=== PATIENT | male | born 1955 | race Caucasian/White ===

== ENCOUNTER 2019-02-20 08:26 | Emergency (ER) | payer BC ==
[~2019-02-20] VITALS: Ht 180.3 cm; Wt 104.0 kg
[2019-02-20] MEDS ORDERED: CLONAZEPAM1 MG PO (08:49)
[2019-02-20] MEDS ORDERED: LISINOP/HCTZ1 TA2 PO (08:50)
[2019-02-20 09:46] LABS: IMMATURE GRANULOCYTES 0.5 % (0.0-5.0); MEAN CELL VOLUME 56.8 fL CALC (80.0-100.0); MEAN CORPUSCULAR HGB 14.1 pG CALC (26.0-32.0); MEAN CORPUSCULAR HGB CONC 24.8 g/L CALC (32.0-36.0); NEUT# 4.18 thou/uL (1.82-7.42); RED BLOOD COUNT 3.7 mill/uL (4.70-6.10); RED CELL DISTRI WIDTH 22.7 % (11.5-15.5)
[2019-02-20 10:01] LABS: ALBUMIN 3.4 g/dL (3.2-5.0); ALKALINE PHOSPHATASE 103 u/l (38-126); ANION GAP 13 (6-22 (CALC)); BILIRUBIN, TOTAL 0.8 mg/dL (0.0-1.4); BUN 16 mg/dL (8-23); BUN/CREATININE RATIO 18 (12-20 (CALC)); CARBON DIOXIDE 27 mmol/l (22-30); CHLORIDE 98 mmol/l (95-108); CREATININE 0.9 mg/dL (0.7-1.3); GFR > 60 ML/MIN (>=60 (CALC)); GFR FOR AFR.AMER. > 60 ML/MIN (>=60 (CALC)); POTASSIUM 3.9 mmol/l (3.5-5.1); SGOT/AST 67 u/l (19-48); SODIUM 134 mmol/l (137-146)
[2019-02-20 10:07] LABS: HEMOGLOBIN 5.2 g/dl (14.0-18.0)
[2019-02-20 10:49] LABS: INTERNATIONAL NORMALIZED RATIO 1.2 RATIO (0.7-1.3); PROTHROMBIN TIME 12.3 SECONDS (9.0-12.5)
[2019-02-20 11:26] LABS: HEMATOCRIT 21.3 % (39.0-50.0)
[2019-02-20 11:30] LABS: HEMOGLOBIN 5.3 g/dl (14.0-18.0)
[2019-02-20 11:48] VITALS: BP 107/59
[2019-02-20 12:00] VITALS: BP 113/56
[2019-02-20 12:20] VITALS: BP 122/59
[2019-02-20 12:40] VITALS: BP 122/59
== END 2019-02-20 12:40 | disposition short-term general hospital (02) | DRG 812 ==
LOC: ED 08:26
PROVIDERS: Emergency Medicine
PROC: 30233N1 Transfusion of Nonautologous Red Blood Cells into Peripheral Vein, Percutaneous Approach (ICD-10-PCS; principal; 2019-02-20)
DX: D64.9 Anemia, unspecified (principal); J90 Pleural effusion, not elsewhere classified; R79.89 Other specified abnormal findings of blood chemistry; R94.31 Abnormal electrocardiogram [ECG] [EKG]; R60.0 Localized edema; L53.8 Other specified erythematous conditions; I10 Essential (primary) hypertension; Z79.899 Other long term (current) drug therapy; F41.9 Anxiety disorder, unspecified; S89.92XA Unspecified injury of left lower leg, initial encounter; R53.1 Weakness
CPT/HCPCS: P9016

== ENCOUNTER 2019-09-06 06:51 | Emergency (ER) | payer BC ==
[~2019-09-06 06:51] MED LIST: CLONAZEPAM1 MG PO; LISINOP/HCTZ1 TA2 PO
[2019-09-06 07:46] LABS: IMMATURE GRANULOCYTES 0.6 % (0.0-5.0); MEAN CORPUSCULAR HGB 27.4 pG CALC (26.0-32.0); MEAN CORPUSCULAR HGB CONC 31.5 g/dL CAL (32.0-36.0); NEUT# 6.49 thou/uL (1.82-7.42); RED BLOOD COUNT 4.24 mill/uL (4.70-6.10)
[2019-09-06 07:47] LABS: HEMATOCRIT 36.8 % (39.0-50.0); MEAN CELL VOLUME 86.8 fL CALC (80.0-100.0)
[2019-09-06 07:48] LABS: HEMOGLOBIN 11.6 g/dl (14.0-18.0)
[2019-09-06 08:07] LABS: ALBUMIN 4.2 g/dL (3.2-5.0); ALKALINE PHOSPHATASE 106 u/l (38-126); ANION GAP 13 (6-22 (CALC)); BILIRUBIN, TOTAL 0.7 mg/dL (0.0-1.4); BUN 21 mg/dL (8-23); BUN/CREATININE RATIO 22 (12-20 (CALC)); CARBON DIOXIDE 26 mmol/l (22-30); CHLORIDE 98 mmol/l (95-108); CREATININE 0.9 mg/dL (0.7-1.3); ETHYL ALCOHOL 0 mg/dl (0-30); GFR > 60 ML/MIN (>=60 (CALC)); GFR FOR AFR.AMER. > 60 ML/MIN (>=60 (CALC)); LIPASE 147 u/l (23-300); POTASSIUM 4.4 mmol/l (3.5-5.1); SGOT/AST 31 u/l (19-48); SODIUM 132 mmol/l (137-146); TOTAL PROTEIN 8.1 g/dL (6.3-8.2)
[2019-09-06 08:08] VITALS: BP 125/65
[2019-09-07] MEDS ORDERED: LASIX40 MG PO (10:13)
[2019-09-07] MEDS ORDERED: METOPROLOL SUCC50 MG PO (10:13)
[2019-09-07] MEDS ORDERED: ATORVASTATIN CA80 MG PO (10:15)
[2019-09-07] MEDS ORDERED: SPIRONOLACT25 MG PO (10:15)
[2019-09-07] MEDS ORDERED: PANTOPRAZOLE SO40 M1 PO (10:16)
[2019-09-07] MEDS ORDERED: BRILINTA90 MG PO (10:16)
[2019-09-07] MEDS ORDERED: ENDOCET1 TA1 PO (10:18)
[2019-09-07] MEDS ORDERED: CLONAZEPAM1 MG PO (10:20)
--- NOTE | 2019-09-08 11:59 | NUR ---
Pt. was seen on 06/09/[address] received the order. He was alert and oriented. He was aware of where he was, day, time, and able to carry on a brief conversation. Nsg reported he was C[place] Acted and admitted for Hallucinations, Meth Amphetamines, Amphetamines, and Cocaine use. ST evaluation not necessary at this time.
== END 2019-09-06 08:08 | disposition left against medical advice (07) | DRG 125 ==
LOC: ED 06:51
PROVIDERS: Family Medicine
DX: R44.1 Visual hallucinations (principal); I10 Essential (primary) hypertension; I25.2 Old myocardial infarction; F17.210 Nicotine dependence, cigarettes, uncomplicated; Z95.5 Presence of coronary angioplasty implant and graft; Z91.19 Patient's noncompliance with other medical treatment and regimen

== ENCOUNTER 2019-09-06 13:24 | Inpatient (IN) | payer BC ==
--- NOTE | 2019-09-06 13:24 | NUR ---
PT AMB TO ROOM WITH DRESSINGS TO BILATERAL FEET
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
--- NOTE | 2019-09-06 14:45 | NUR ---
PATIENT RESTING AWAITNG LAB AND RADIOLOGY RESULTS. PATIENT DENIES ANY SUICIDAL IDEATIONS AT THIS TIME. PATIENT DENIES ANY PAIN AT THIS TIME
[2019-09-06 15:00] LABS: HEMATOCRIT 39.1 % (39.0-50.0); HEMOGLOBIN 12.3 g/dl (14.0-18.0); IMMATURE GRANULOCYTES 0.3 % (0.0-5.0); MEAN CELL VOLUME 86.9 fL CALC (80.0-100.0); MEAN CORPUSCULAR HGB 27.3 pG CALC (26.0-32.0); MEAN CORPUSCULAR HGB CONC 31.5 g/dL CAL (32.0-36.0); NEUT# 5.64 thou/uL (1.82-7.42); RED BLOOD COUNT 4.5 mill/uL (4.70-6.10); RED CELL DISTRI WIDTH 16.1 % (11.5-15.5)
[2019-09-06 15:19] LABS: ALBUMIN 4.4 g/dL (3.2-5.0); ALKALINE PHOSPHATASE 118 u/l (38-126); ANION GAP 14 (6-22 (CALC)); BILIRUBIN, TOTAL 0.7 mg/dL (0.0-1.4); BUN 19 mg/dL (8-23); BUN/CREATININE RATIO 18 (12-20 (CALC)); CARBON DIOXIDE 24 mmol/l (22-30); CHLORIDE 99 mmol/l (95-108); ETHYL ALCOHOL 0 mg/dl (0-30); GFR > 60 ML/MIN (>=60 (CALC)); GFR FOR AFR.AMER. > 60 ML/MIN (>=60 (CALC)); LIPASE 122 u/l (23-300); POTASSIUM 4.1 mmol/l (3.5-5.1); SGOT/AST 31 u/l (19-48); SODIUM 134 mmol/l (137-146); TOTAL PROTEIN 8.9 g/dL (6.3-8.2)
--- NOTE | 2019-09-06 15:45 | NUR ---
PATIENT RESTING WITH EYES CLOSED AWAITING LAB RESULTS. PATIENT DENIES ANY SUICIDAL IDEATIONS AT THIS TIME. PATIENT STILL STATES THERE ARE SNAKES ALL OVER. NOTIFIED
[2019-09-06 15:49] LABS: TSH, 3RD GENERATION 2.04 uIU/mL (0.47 - 4.68)
--- NOTE | 2019-09-06 16:45 | NUR ---
PATIENT RESTING AWAITING LAB RESULTS. PATIENT STATES UNABLE TO GIVE URINE SPECIMEN AT THIS TIME. PATIENT DENIES ANY PAIN AT THIS TIME
--- NOTE | 2019-09-06 17:00 | NUR ---
CALLED TO GIVE REPORT AND NURSE UNAVAIBLE FOR REPORT
--- NOTE | 2019-09-06 17:12 | NUR ---
PATIENT STATES TAKES NUMEROUS MEDICATIONS BUT CANT REMEMBER EXACT MEDS OR DOSAGES. MD NOTIFIED AND PHARMACY CONSULT PLACED
--- NOTE | 2019-09-06 17:26 | NUR ---
REPORT GIVEN TO ICU
--- NOTE | 2019-09-06 17:30 | NUR ---
PATIENT TRANSPORTED TO ICU
[2019-09-06 17:37] VITALS: BP 161/90
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
[2019-09-06 18:00] VITALS: BP 149/86
[2019-09-06 18:15] VITALS: BP 125/75
[2019-09-06 18:20] LABS: URINE BILIRUBIN - DIPSTICK NEGATIVE (NEGATIVE); URINE BLOOD DIPSTICK NEGATIVE (NEGATIVE); URINE COLOR YELLOW; URINE GLUCOSE - DIPSTICK NEGATIVE (NEGATIVE); URINE KETONE 15 mg/dL (NEGATIVE); URINE LEUK ESTERASE NEGATIVE (NEGATIVE); URINE NITRITE - DIPSTICK NEGATIVE (Negative); URINE PROTEIN - DIPSTICK NEGATIVE (NEG-TRACE); URINE UROBILINOGEN - DIPSTICK 0.2 E.U./dL (0.2)
[2019-09-06 18:24] LABS: BARBITURATES NEGATIVE (NEGATIVE); COCAINE POSITIVE (NEGATIVE); METHADONE NEGATIVE (NEGATIVE); TETRAHYDROCANNABIONOL NEGATIVE (NEGATIVE); TRICYLIC ANTIDEPRESSANTS NEGATIVE (NEGATIVE)
[2019-09-06 18:25] LABS: OXCYCODONE NEGATIVE (NEGATIVE)
[2019-09-06 18:30] VITALS: BP 148/77
--- NOTE | 2019-09-06 19:30 | NUR ---
REPORT RECEIVED FROM Maria Esther KLEIN RN, CARE OF PT ASSUMED @ THIS TIME.
[2019-09-06 20:00] VITALS: BP 106/70
--- NOTE | 2019-09-06 20:00 | NUR ---
PHYSICAL ASSESSMENT COMPLETE, VS AND TELEMETRY READINGS ASSESSED. PT IS HEMODYNAMICALLY STABLE @ THIS TIME. PT IS A/OX3, THOUGHT PROCESS APPEARS SCATTERED. PT MENTIONS THERE IS A "BIG MAN [place]BARRA FOR HIM AND THE POLICE ARE SEARCHING FOR HIM", STATES HIS MOTHER WITH DEMENTIA IS UNDER HIS CARE, ALSO STATES SHE HAS 09/11 @ HOME NURSING CARE. EXPRESSESS ANXIETY ABOUT MISSING APPOINTMENTS AND ALL THE THINGS HE HAS TO DO. PT STATES PERCOCET IS WHAT CAUSED HIS PREVIOUS HALLUCINATIONS. ABLE TO REDIRECT PT TO REMAIN CALM AND FOCUS ON GETTING REST AND GETTING WELL FOR THE NIGHT. WILL REDIRECT PRN. PLABN OF CARE REVIEWED W/ PT. PT VERBALIZES UNDERSTANDING AND DENIES QUESTIONS @ THIS TIME. PHOTOS OF SCATTERED ABRASIONS, SCRATCHES, AND SCABS OF BLE TAKEN, SEE CHART. BLE WRAPPED W/ KERLEX PER PT'S REQUEST. IV NS @ 100ML/ HOUR INITIATED, SEE MAR. PT DENIES FURTHER NEEDS @ THIS TIME. 1:1 SITTER PRESENT @ BEDSIDE. CALL [place] WITHIN REACH, AGREES TO CALL PRN.ITEMS WITHIN REACH. BED LOCKED IN LOW POSITION W/ BEDRAILS UP X2.
[2019-09-06 22:00] VITALS: BP 131/79
[2019-09-07] VITALS (10 sets, daily range): BP systolic 109–205; BP diastolic 51–137
--- NOTE | 2019-09-07 00:15 | NUR ---
PT REFUSES TO WEAR CONTINOUS PULSE OX, WILL CHECK INTERMITTENTLY Q4H AND PRN.
--- NOTE | 2019-09-07 02:00 | NUR ---
PT SITTING UP @ SIDE OF BED, NO APPARENT DISTRESS, DENIES NEEDS @ THIS TIME. 1:1 SITTER REMAINS @ BEDSIDE. CALL [place]ER[place] REMAINS WITHIN REACH. BED REMAINS LOCKED IN LOW POSITION W/ BEDRAILS UP X2. ITEMS WITHIN REACH. WILL CONT' TO MONITOR.
--- NOTE | 2019-09-07 04:30 | NUR ---
PT APPEARS TO BE SLEEPING COMFORTABLY, NO APPARENT DISTRESS, RESPIRATIONS REGULAR AND UNLABORED. CALL [place] REMAINS WITHIN REACH. BED REMAINS LOCKED IN LOW POSITION W/ BEDRAILS UP X2. ITEMS WITHIN REACH.1:1 SITTER REMAINS @ BEDSIDE. WILL CONT' TO MONITOR.
--- NOTE | 2019-09-07 06:27 | NUR ---
PHYSICAL ASSESMENT REMAINS UNCHANGED FROM START OF SHIFT BASELINE. PT REMAINS STABLE FROM HEMODYNAMIC STANDPOINT. PT RESTING IN BED COMFORTABLY. DENIES NEEDS @ THIS TIME. 1:1 SITTER REMAINS @ BEDSIDE. CALL [place] REMAINS WITHIN REACH, AGREES TO CALL PRN. ITEMS WITHIN REACH. BED REMAINS LOCKED IN LOW POSITION W/ BEDRAILS UP X2.
--- NOTE | 2019-09-07 06:45 | NUR ---
REPORT RECEIVED FROM OUTGOING NURSE, PT RESTING IN BED AT THIS TIME.
--- NOTE | 2019-09-07 07:34 | NUR ---
DR ALCARAZ AT BEDSIDE, ASSESSED PT FOOT WOUNDS AND WILL FOLLOW UP WITH DR VARGAS. NO NEW ORDERS AT THIS TIME.
--- NOTE | 2019-09-07 07:56 | NUR ---
PT ASSESSED, ALERT AND ORIENTED X3 AT THIS TIME, MOVES ALL EXTREMITIES, DENIES PAIN OR DISCOMFORT AT THIS TIME. SEE PROCESS INTERV FOR FULL ASSESSMENT.
--- NOTE | 2019-09-07 09:22 | NUR ---
DR VARGAS @BEDSIDE, ASSESSING PT, DISCUSSING POC. DISCUSSED WITH EDIL CELESTE, CASE MANAGEMENT.
[2019-09-07] MEDS ORDERED: LASIX40 MG PO (10:13)
[2019-09-07] MEDS ORDERED: METOPROLOL SUCC50 MG PO (10:13)
[2019-09-07] MEDS ORDERED: ATORVASTATIN CA80 MG PO (10:15)
[2019-09-07] MEDS ORDERED: SPIRONOLACT25 MG PO (10:15)
[2019-09-07] MEDS ORDERED: PANTOPRAZOLE SO40 M1 PO (10:16)
[2019-09-07] MEDS ORDERED: BRILINTA90 MG PO (10:16)
[2019-09-07] MEDS ORDERED: ENDOCET1 TA1 PO (10:18)
[2019-09-07] MEDS ORDERED: CLONAZEPAM1 MG PO (10:20)
--- NOTE | 2019-09-07 11:13 | NUR ---
PT EDUCATED ON BURGESS TIME FRAME, HOSPITAL POLICIES, & START TIME/DURATION. PT VERBALIZED UNDERSTANDING. PT USING MANIPULATIVE COMMUNICATION. SITTER REMAINS AT BEDSIDE.
--- NOTE | 2019-09-07 11:30 | NUR ---
RECIEVED REPORT FROM CHRISTAL REY. ASSUMED PT CARE.
--- NOTE | 2019-09-07 11:30 | NUR ---
CALLED [facility] [phone], SPOKE WITH [place] IN MEDICAL RECORDS. PT LAST SEEN IN OFFICE ON 08-29-19. RECORDS FROM SURGERY AND OFFICE VISITS TO BE FAXED.
--- NOTE | 2019-09-07 11:46 | NUR ---
PT FAMILY CALLED TO UPDATE PT ON HIS MOTHER'S CONDITION AT STATUS. PORTABLE PHONE IN ROOM FOR PT USE.
--- NOTE | 2019-09-07 11:55 | NUR ---
JORDEN FROM [facility] CALLED WITH PT CODE, ASKED TO SPEAK WITH PT. CONTACT DECLINED. UPDATE GIVEN. PT MADE AWARE OF CALL RECIEVED AND MESSAGE RELAYED. JORDEN STATED, "PLEASE LET HIM KNOW i AM AWARE HE IS THERE AND STABLE."
--- NOTE | 2019-09-07 12:04 | NUR ---
PT RECORDS RECIEVED FROM DR. BEY, DR. RAYMUNDO REVIEWED. RECORDS PLACED IN CHART.
--- NOTE | 2019-09-07 12:08 | NUR ---
CORAZON DELEON CALLED WITH PT CODE, STATED HE WAS PT PSYCHOLOGIST [employer] AND WANTED TO SPEAK WITH PT. Cecille PANCHO WAS UPDATED ON PT CONDITION PER POLICY. PORTABLE PHONE UNAVAILABLE AT THIS TIME.
--- NOTE | 2019-09-07 14:10 | NUR ---
VIKTORIA WAYNE CALLED WITH CODE, ASKED TO SPEAK WITH PT. REQUEST DENIED. UPDATE GIVEN, VIKTORIA STATED HE WOULD BE BRINGING UP SOME OF PT PERSONAL BELONGINGS TO BE DELIVERED TO PT.
--- NOTE | 2019-09-07 14:39 | NUR ---
DRESSINGS APPLIED TO BLE, IODINE TO ULCERS, COVERED WITH 4X4, SECURED WITH KERLEX, WRAPPED WITH RONI WRAPS. PT TOLERATED WELL. SITTER REMAINS AT BEDSIDE. WILL MONITOR.
--- NOTE | 2019-09-07 15:37 | NUR ---
REPORT GIVEN TO CHRISTAL REY.
--- NOTE | 2019-09-07 16:16 | NUR ---
PER DR VARGAS, PT WILL LIFT AMA BUT PT IS TO REMAIN IN HOSPITAL UNTIL HE FINISHES ANTIBIOTICS ON 09/08. "IF HE WANTS TO AMA, WILL KEEP BURGESS ACT TILL HE FINISHES ANTIBIOTICS; PT CAN NOT GO HOME WITH PICC LINE" D/T +UDS. TRANSFER TO MSU, NO TELE.
--- NOTE | 2019-09-07 19:38 | NUR ---
PT BROUGHT TO MS2 RM 268 VIA WHEELCHAIR BY RN NEONATAL ICU. PT A+Ox3 ORIENTED PT TO ROOM AND CALL LIGHT. DISCUSSED POC, BLE DRESSING CDI; WARM TO TOUCH, PT DENIES DISCOMFORT TO BLE. BELONINGINGS PLACED IN CLOSET FOR PT. PT REQUESTING DEVELOPMENT ANALYST, ONE PROVIDED BY FACILITY TO BORROW. FOOD AND WATER PROVIDED. DUAL LUMEN PICC TO MELINA BLOOD RETURN NOTED AND FLUSHED WELL. PT STATES HE WAS IN PT [place] FOR SURGERY AND PICC LINE PLACED AT THAT TIME. ASSESSMENT COMPLETED, CALL LIGHT IN REACH,CONTINUE TO MONITOR.
--- NOTE | 2019-09-07 21:04 | NUR ---
PT BRUSHING HIS TEETH AT SINK, NO SIGNS OF DISTRESS NOTED, RESP EVEN AND UNLABORED. CALL LIGHT IN REACH, CONTINUE TO MONITOR.
--- NOTE | 2019-09-08 00:20 | NUR ---
PT RESTING IN BED, NEW BAG OF IVF HUNG, PT VOICES NO NEEDS OR COMPLAINTS AT THIS TIME. CALL LIGHT IN REACH,CONTINUE TO MONITOR.
[2019-09-08 03:56] VITALS: BP 108/65
--- NOTE | 2019-09-08 04:02 | NUR ---
PT RESTING IN BED, NO SIGNS OF DISTRESS NOTED, RESP EVEN AND UNLABORED. CALL LIGHT IN REACH,CONTINUE TO MONITOR.
[2019-09-08 08:00] VITALS: BP 115/62
--- NOTE | 2019-09-08 08:00 | NUR ---
ASSESSMENT IS COMPLETED; IV SITE IS FREE FROM REDNESS OR EDEMA. HR IS REG,PULSES ARE STRONG X4, ABD IS SOFT WITH ACTIVE BS. BREATH SOUNDS ARE CLEAR,BILATERALLY, DRESSING ON BILAT FEET ARE CDI. CONTINUE TO OBSERVE AND MONITOR.
--- NOTE | 2019-09-08 11:07 | NUR ---
family sent belongings for pt.
--- NOTE | 2019-09-08 12:30 | NUR ---
PT HAS BEEN AMBULATING IN THE [place] WITH NO DISTRESS NOTED. IV SITE IS FREE FROM REDNESS OR EDEMA.
[2019-09-08 15:32] VITALS: BP 130/76
--- NOTE | 2019-09-08 16:30 | NUR ---
PT CONTINUES TO AMBULATE IN THE [place] WITH NO DISTRESS NOTED. IV SITE IS FREE FROM REDNESS OR EDEMA.
[2019-09-08 19:00] VITALS: BP 127/72
--- NOTE | 2019-09-08 20:03 | NUR ---
PT MEDICATED ORDERS PROVIDE. REFUSED IVF STATING " SAID I DON'T HAVE TO HAVE THOSE ANYMORE." ASSESSMENT COMPLETED AT THIS TIME. PICC FLUSHED, PATENT AND APPEARS HEALTHY. PT ASKING FOR FOOD/DRINK AND WATER - PROVIDED.
--- NOTE | 2019-09-08 22:02 | NUR ---
PT WALKING [place]/PROVIDED ICE WATER. BACK TO ROOM AT THIS TIME.
--- NOTE | 2019-09-09 01:30 | NUR ---
PT SLEEPING, NO S/O DISTRESS NOTED. CALL LIGHT AT SIDE.
[2019-09-09 03:45] VITALS: BP 127/80
--- NOTE | 2019-09-09 03:58 | NUR ---
AIDE IN W/PT. V/S ASSESSED. PT DENIES ANY NEEDS AT THIS TIME. CALL LIGHT AT BEDSIDE.
--- NOTE | 2019-09-09 05:30 | NUR ---
REPORT RECEIVED FROM DENI SIEGEL. CARE ASSUMED.
[2019-09-09 06:40] VITALS: BP 155/90
--- NOTE | 2019-09-09 06:40 | NUR ---
PT RESTING IN BED WITH EYES CLOSED. PT SROUSES TO VERBAL STIMULI. PT IS ALERT AND ORIENTED X3. SHIFT ASSESSMENT COMPLETED AT THIS TIME. IV PATENT X1. CALL LIGHT IN REACH. WILL CONTINUE TO MONITOR.
[2019-09-09 09:15] VITALS: BP 155/90
[2019-09-09] MEDS ORDERED: LISINOPRIL20 M1 PO (09:42)
[2019-09-09] MEDS ORDERED: PLAVIX75 MG PO (09:42)
--- NOTE | 2019-09-09 10:00 | NUR ---
DR ERAZO AT BEDSIDE
[2019-09-09] MEDS ORDERED: BRILINTA90 MG PO (10:55)
--- NOTE | 2019-09-09 11:00 | NUR ---
PICC LINE REMOVED 34 INCHES. OCCLUSIVE DRESSING APPLIED. PT TOLERATED WELL PT INSTRUCTED TO LEAVE DRESSING IN PLACE FOR 24 HOURS. PT VERBALIZED UNDERSTANDING. DRESSING CHANGE TO FEET WET TO DRY COMPLETED.
--- NOTE | 2019-09-09 11:25 | NUR ---
DISCHARGE INSTRUCTIONS REVIEWED WITH PATIENT. PATIENT VERBLAIZED UNDERSTANDING.
--- NOTE | 2019-09-09 11:47 | NUR ---
Discharge instructions given. Patient verbalizes understanding of same. Discharged in stable condition via Wheelchair to Home with staff. All belongings sent with pt.
== END 2019-09-09 11:45 | disposition home or self-care (01) | DRG 897 ==
LOC: ED 13:24 → ED-I 16:10 → ED 16:29 → ICU 16:30 → MS2 16:30 → ED-I 16:30 → ICU 17:02 → MS2 09-07 19:38
PROVIDERS: Family Medicine; ADMIT Internal Medicine; ATTEND Internal Medicine
DX: F15.951 Other stimulant use, unspecified with stimulant-induced psychotic disorder with hallucinations (principal); M86.671 Other chronic osteomyelitis, right ankle and foot; L97.418 Non-pressure chronic ulcer of right heel and midfoot with other specified severity; G93.49 Other encephalopathy; T40.2X5A Adverse effect of other opioids, initial encounter; F14.951 Cocaine use, unspecified with cocaine-induced psychotic disorder with hallucinations; I10 Essential (primary) hypertension; I25.10 Atherosclerotic heart disease of native coronary artery without angina pectoris; I25.2 Old myocardial infarction; Z95.5 Presence of coronary angioplasty implant and graft; Z87.891 Personal history of nicotine dependence; Z20.828 Contact with and (suspected) exposure to other viral communicable diseases
CPT/HCPCS: J1650